=== PATIENT | female | born 1985 | race Caucasian/White ===

== ENCOUNTER 2022-07-25 10:43 | Emergency (ER) | payer BC, SELFPAY ==
--- NOTE | 2022-07-25 10:45 | RT.EKG_ITS ---
APPROVED REPORT Exam: Resting ECG Reason for Exam: SIDE PAIN Patient Location: E HR:85 bpm ECG Measurements Heart Rate 85 AXIS MN 119 P 47 QRSd 92 QRS 68 QT 378 T 23 QTc 452 Conclusion Sinus rhythm...normal P axis, V-rate 60- 99
[2022-07-25 10:53] VITALS: BP 124/76; PULSE 90; RESP 22; O2SAT 100
--- NOTE | 2022-07-25 11:06 | ED.GENADUL_ITS ---
Discharge Plan Disposition Patient Disposition: Home Discharge Details Clinical Impression: Dyspnea Primary Care Provider: Joel De Jesus ED Provider: Ej Ryan Discharge Instructions Instructions: Dyspnea (ED) Additional Instructions: Your CAT scan did reveal that you had COVID. These changes should resolve with time. Please follow-up with your primary care provider next week. Medical Decision Making Patient with dyspnea. PERC negative. Reviewed MRI was obtained. Patient had CT scan of her chest which revealed no PE however she does have changes consistent with COVID pneumonia. She had COVID infection 1 week ago. She tested negative yesterday. Imagine that this is from the changes of her COVID infection from last week. Results were discussed with the patient. She will follow-up with her primary care Asher Melendez next week. Well-appearing and hypoxia. Sign Out No HPI General Date/Time Provider Initiated Documentation: 07/25/22 11:06 . HPI Narrative: Patient presents to the emergency department for concern of difficulty taking a deep breath. She states that she has a sensation that it is difficult for her to breathe. She states that this has been going on for 2 weeks. Has not interfered with her activities of daily living. She has taken pulse oximetry at home which has always been normal. She has had no cough, no hemoptysis. No shortness of breath on exertion. Quality is mild to moderate. At times it is associated with pain with deep breathing. She had COVID approximately a week ago. Tested negative yesterday. She states that time she wakes up at night with a sensation that it is difficult to breathe. No associated fever other than 3 days ago. No chills. General Stated Complaint: SOB [place]: 2 Review of Systems Narrative: Constitutional is been negative for fever chills, negative for malaise, negative for fatigue. HEENT negative Cardiovascular see hpi Respiratory: see hpi GI: No abdominal pain, no diarrhea, no nausea, no vomiting : neg MSK: No myalgias, no arthralgias Skin: No rash Neurological: No headaches, no focal weakness, no paresthesias, no dizziness Psych: Positive anxiety Endo: Unquantified weight loss secondary to poor appetite Hematology/lymph: No painful nodes, no easy bleeding, not on blood thinners PFSH All Active Problems (Updated 07/25/22 @ 13:17 by Ej Ryan MD) Dyspnea (Acute) Social History Smoking/Tobacco Use Status: Never Smoking risk assessment performed?: Yes Alcohol Intake: never Drug use: Never Substance use type: does not use Do you feel safe at home: Yes Do you feel safe in your relationship?: Yes Exam Narrative Exam Narrative: General: A,A Ox3, Calm, no apparent distress, well developed, pleasant and cooperative Head Size/Shape: normocephalic, atraumatic Eyes Pupils: PERRLA Extraocular Mobility: intact and symmetrical Conjunctiva: non-injected, anicteric, no discharge Ears, Nose, Throat Nares: patent bilaterally Oral Cavity: moist Neck: supple Lymph Nodes: no cervical lymphadenopathy Respiratory Respiratory Effort: no dyspnea Auscultation: clear to auscultation bilaterally, normal breath sounds, no wheezing, no rales/crackles Cardiovascular Heart Auscultation: regular rate and rhythm, normal S1, normal S2, no murmurs, no rubs, no gallops, Abdomen Inspection and Palpation: soft, non-tender, non-distended, no hepatosplenomegaly Musculoskeletal System Joints, Bones, and Muscles: no deformities Extremities: warm and well-perfused, no cyanosis, capillary refill <2 seconds , no claives swelling Skin Skin Inspection: no rash, no lesions, no bruising Neurological Motor: normal tone, normal strength, moving all extremities equally Psychiatric: good insight, good judgement, normal mood and affect Course Vital Signs Vital signs: Vital Signs Pulse 90 07/25/22 10:53 Respiratory Rate 07/25/22 10:53 Blood Pressure 124/76 07/25/22 10:53 Pulse Oximetry 100 07/25/22 10:53 Pulse 90 07/25/22 10:53 Respiratory Rate 22 07/25/22 10:53 Blood Pressure 124/76 07/25/22 10:53 Pulse Oximetry 100 07/25/22 10:53 Oxygen Delivery Method Room Air 07/25/22 10:53 Oxygen Flow Rate 0 07/25/22 10:53 Pain Level 0 07/25/22 10:53
[2022-07-25 11:18] VITALS: RESP 18
[2022-07-25 11:22] LABS: Abs Immature Grans 0.03 10^3/uL (0.0-0.06); Absolute Basophil Count 0.02 10^3/uL (0.0-0.2); Absolute Eosinophil Count 0.13 10^3/uL (0.0-0.7); Absolute Lymphocyte Count 1.25 10^3/uL (1.2-3.4); Absolute Neutrophil Count 4.93 10^3/uL (1.2-6.7); Basophils % 0.3; Eosinophils % 1.9; HCT 35.5 % (36.0-46.0); HGB 12.3 g/dL (11.2-15.7); Immature Grans % 0.4; Lymphocytes % 18.5; MCH 29.3 pg (27.0-33.0); MCHC 34.6 % (32.0-36.0); MCV 85 fL (80-95); MPV 9.9 fL (8.0-11.0); Monocytes % 5.9; Platelet Count 329 10^3/uL (130-400); RDW 12.1 % (11.7-14.6); WBC 6.76 10^3/uL (4.4-10.8)
[2022-07-25 11:33] LABS: Anion Gap 10.4 mmol/L (3-11); BUN 15 mg/dL (7-18); CO2 24.6 mmol/L (21.0-32.0); CREATININE 0.7 mg/dL (0.55-1.02); Calcium 9.4 mg/dL (8.5-10.1); Chloride 103 mmol/L (98-107); Estimated GFR 114.16 (mL/min/1.73m2); Glucose 102 mg/dL (74-106); Potassium 3.5 mmol/L (3.5-5.1); Sodium 138 mmol/L (136-145)
[2022-07-25 11:57] LABS: D-Dimer 1105 ng/mlFEU (<500)
--- NOTE | 2022-07-25 12:00 | DI.CT_ITS ---
Exam(s) CT CHEST PE CTA EXAM: CT CHEST PE CTA CLINICAL HISTORY: high ddimer. TECHNIQUE: Imaging Protocol: Axial CT angiography was performed with multi-slice acquisition and mu lti-planar and/or 3D reconstructions. CONTRAST MATERIAL: Intravenous: Omnipaque 350 contrast volume:100 mL COMPARISON: No exams were available for comparison FINDINGS: Tracheobronchial tree: Patent where visualized. Pulmonary parenchyma: There are bilateral lower lobe ground-glass opacities. No architectural distor tion. Pulmonary Arteries: No evidence of filling defect to suggest pulmonary emboli. Mediastinum and Brie: No dominant adenopathy or fluid collection. The esophagus is unremarkable. Visualized thyroid gland: Unremarkable. Pleura: No effusion or pneumothorax. Heart: The heart is not dilated. No coronary artery calcifications are seen. No pericardial effusion. Aorta: Thoracic aorta non-dilated. No evidence of dissection. Upper abdomen: Unremarkable. Soft tissues: Unremarkable. Bones: Within normal limits for the patient's age. IMPRESSION: 1. No evidence of pulmonary embolism, thoracic aortic dissection or aneurysm. 2. Bilateral ground-glass opacities are present. The findings are consistent with the patient's known COVID-19 pneumonia. 3. Findings were discussed with Kassandra Holguin at 1:06 p.m. on 07/25/2022. RADIATION DOSE DELIVERED: 321.28mGy.cm Total DLP DATA REPOSITORY: All CT scans at this facility are submitted to the National Radiology Data Registry (NRDR) Dose Index Registry (DIR) with the [employer] ([employer]). RADIATION OPTIMIZATION: All CT scans at this facility use at least one of these dose optimization te chniques: automated exposure control; mA and/or kV adjustment per patient size (includes targeted exa ms where dose is matched to clinical indication); or iterative reconstruction.
[2022-07-25] MEDS: Omnipaque 350 MG/ML 100 ML BTL IJ (12:26)
[2022-07-25] MEDS: Normal Saline - Diluent 50 ML VIAL IJ (12:27)
[2022-07-25] MEDS: Normal Saline Flush 10 ML SYR IVP (12:27)
== END 2022-07-25 13:40 | disposition home or self-care (01) ==
PROVIDERS: Emergency Provider Emergency Medicine; PCP Nurse Practitioner Family
DX: R06.00 Dyspnea, unspecified (principal)
CPT/HCPCS: 36415; 71275; 80048; 93005; 99285; 85025; 85379; 93010; J3490